=== PATIENT | male | born 1990 | race Caucasian/White ===

== ENCOUNTER 2018-01-23 00:52 | Emergency (ER) | payer SELFPAY ==
[~2018-01-23] VITALS: Ht 182.9 cm; Wt 90.7 kg
[2018-01-23] MEDS ORDERED: BACITRACIN-POLYMYXIN B TOPICAL OINT UD TOP ONE (02:42)
[2018-01-23 02:53] VITALS: BP 136/82
[2018-01-23] MEDS ORDERED: cefTRIAXone SOD 1,000 MG VL ONE (03:12)
[2018-01-23] MEDS ORDERED: LIDOCAINE 2% (LOCAL ANESTH.) PF 5ml SDV ONE (03:13)
[2018-01-23] MEDS ORDERED: cefTRIAXone SOD 1,000 MG VL IM ONE (03:15)
== END 2018-01-23 03:13 ==
LOC: ER 00:52
DX: S11.91XA Laceration without foreign body of unspecified part of neck, initial encounter (principal); F17.210 Nicotine dependence, cigarettes, uncomplicated; X99.1XXA Assault by knife, initial encounter; Y93.89 Activity, other specified; Y92.89 Other specified places as the place of occurrence of the external cause; Y99.8 Other external cause status
CPT/HCPCS: 12002; 96372; 99283; J0696